=== PATIENT | female | born 1985 | race Caucasian/White ===

== ENCOUNTER 2024-06-11 11:50 | Outpatient (CLI) | payer MEDICAID, SELFPAY ==
--- NOTE | 2024-06-11 12:15 | CRLHL7_ITS ---
For Patients: As a result of the Century Cures Act, medical imaging exams and procedure reports are released immediately into your electronic medical record. You may view this report before your referring provider. If you have questions, please contact your health care provider. HISTORY: Dating and viability COMPARISON: None available of this gestation. TECHNIQUE: Transvaginal ultrasound examination of the early was performed. FINDINGS: A single intrauterine gestational sac is seen with a pole. The crown-rump length measurement of 2.2 cm gives an estimated gestational age of 8 weeks 6 days with an estimated date of delivery of 01/15/2025. This correlates well with the LMP of 04/11/2024 which gives a clinical age of 8 weeks 5 days. Regular cardiac activity is seen at 176 BPM. There is a small hypoechoic fluid collection located along the inferior left side of the gestational sac measuring 1.8 x 0.9 x 0.9 centimeters consistent with a small subchorionic hemorrhage. There is no sign of free fluid in the pelvis. The ovaries are normal in appearance. IMPRESSION: 1. Single intrauterine gestation with estimated age of 8 weeks 6 days. 2. Regular cardiac activity is seen. 3. Small subchorionic hemorrhage inferior to the left of the gestational sac. Dictated by Dhruv Arvizu MD @ 06/11/2024 10:47:17 PM (Electronically Signed)
== END 2024-06-11 11:51 | disposition home or self-care (01) ==
PROVIDERS: Visit Provider Physician Assistant
DX: Z34.91 Encounter for supervision of normal pregnancy, unspecified, first trimester (principal); O20.9 Hemorrhage in early pregnancy, unspecified; Z3A.08 8 weeks gestation of pregnancy
CPT/HCPCS: 76817; 86703; 86706; 86803; 86850; 86900; 86901; 87086; 87340; 87491; 87591

== ENCOUNTER 2024-06-11 13:20 | Outpatient (CLI) | payer MEDICAID, SELFPAY ==
[2024-06-11 18:49] LABS: Chlamydia DNA Amplified* NOT DETECTED (No Detected); GC DNA Amplified* NOT DETECTED (No Detected)
== END 2024-06-11 13:21 | disposition home or self-care (01) ==
PROVIDERS: Visit Provider Physician Assistant
DX: Z34.81 Encounter for supervision of other normal pregnancy, first trimester (principal)
CPT/HCPCS: 86592; 86703; 86704; 86706; 86762; 86787; 86803; 86850; 86900; 86901; 87086; 87340; 87491; 87591

== ENCOUNTER 2024-10-24 14:05 | Outpatient (CLI) | payer OTHER, SELFPAY | END 2024-10-24 14:06 | disposition home or self-care (01) | LOC: NFLDREF 10-26 22:27 | PROVIDERS: Visit Provider Advanced Practice Midwife | DX: Z34.93 Encounter for supervision of normal pregnancy, unspecified, third trimester (principal); Z3A.28 28 weeks gestation of pregnancy | CPT/HCPCS: 86592 ==

== ENCOUNTER 2024-11-21 13:57 | Outpatient (CLI) | payer OTHER, SELFPAY ==
--- NOTE | 2024-11-21 14:00 | CRLHL7_ITS ---
For Patients: As a result of the Century Cures Act, medical imaging exams and procedure reports are released immediately into your electronic medical record. You may view this report before your referring provider. If you have questions, please contact your health care provider. OB ULTRASOUND LMP: 04/11/2024. RICKY by LMP: 01/16/2025. GA: 32 w, 0 d. Single. INDICATION: Supervision of elderly multigravida. TECHNIQUE: Real time grayscale imaging of the fetus was performed. Transabdominal. CERVIX: Not visualized. POSITIONING: Vertex. AMNIOTIC FLUID: 2.6 cm. SDP (N: greater than 2 x 1 cm) PLACENTA: Technique: Transabdominal. PLACENTA POSITION: Anterior, left wall. DOPPLER: heart rate: 135 bpm. BIOMETRY: BPD: 8.0 cm. 32 w, 2 d, 49 percent. HC: 29.7 cm. 32 w, 6 d, 34 percent. AC: 27.8 cm. 31 w, 6 d, 44 percent. FL: 5.9 cm. 30 w, 6 d, 11 percent. FL/AC ratio: 21.25 percent. HC/AC ratio: 1.07. EFW: 1815 g. Weight: 4 lbs, 0 oz. age by this US: 32 w, 0 d. RICKY by this US: 01/16/2025. Percentile by RICKY: 29 percent. IMPRESSION: 1. Sonographic gestational age 32 weeks 0 days and sonographic due date 01/16/2025. Good correlation with dates. Normal interval growth. 2. Estimated weight 29th percentile. Abdominal circumference 44th percentile. 3. Amniotic fluid single deepest pocket 2.6 cm. Mathieu Armendariz M.D. Diagnostic Radiologist [email or web address] JULIANA/lashay metz/Dictated by: Mathieu Armendariz MD @ 11/22/2024 8:13:00 AM (Electronically Signed)
== END 2024-11-21 13:58 | disposition home or self-care (01) ==
LOC: US 13:58
PROVIDERS: Visit Provider Advanced Practice Midwife
DX: O09.523 Supervision of elderly multigravida, third trimester (principal); Z3A.32 32 weeks gestation of pregnancy
CPT/HCPCS: 76816

== ENCOUNTER 2024-12-19 12:47 | Outpatient (CLI) | payer OTHER, SELFPAY ==
--- NOTE | 2024-12-19 13:00 | CRLHL7_ITS ---
For Patients: As a result of the Century Cures Act, medical imaging exams and procedure reports are released immediately into your electronic medical record. You may view this report before your referring provider. If you have questions, please contact your health care provider. INDICATION: Advanced maternal age. FINDINGS: Cervix: Not visualized. positioning: Vertex. Amniotic fluid: 11.9 cm MONSTER. 3.9 cm SDP. Placenta: Technique TA. Position anterior. heart rate: 127 bpm. Biophysical Profile: Gross body movements: 2 tone: 2 Respiratory activity: 2 Amniotic fluid SDP: 2 Total score: 8 IMPRESSION: 1. Normal biophysical profile 8/8. 2. MONSTER 11.9 cm. Mathieu Armendariz M.D. Diagnostic Radiologist [email or web address] bM/Dictated by: Mathieu Armendariz MD @ 12/19/2024 3:26:00 PM (Electronically Signed)
== END 2024-12-19 12:48 | disposition home or self-care (01) ==
LOC: US 12:48
PROVIDERS: Visit Provider Midwife
DX: O09.523 Supervision of elderly multigravida, third trimester (principal); Z3A.36 36 weeks gestation of pregnancy
CPT/HCPCS: 76819

== ENCOUNTER 2024-12-19 16:20 | Outpatient (CLI) | payer OTHER, SELFPAY ==
[2024-12-20 10:29] LABS: Strep B DNA Probe Negative (Negative)
[2024-12-20 10:38] LABS: Strep B Susceptibility Needed? No
== END 2024-12-19 16:21 | disposition home or self-care (01) ==
LOC: NFLDREF 16:20
PROVIDERS: Visit Provider Midwife
DX: O09.523 Supervision of elderly multigravida, third trimester (principal); Z3A.36 36 weeks gestation of pregnancy
CPT/HCPCS: 87081; 87653

== ENCOUNTER 2025-01-09 16:52 | Outpatient (CLI) | payer OTHER, SELFPAY ==
[2025-01-09] VITALS (7 sets, daily range): BP systolic 104–110; BP diastolic 56–70; PULSE 85–146; RESP 16; TEMP 37–37.1; O2SAT 96–98; BMI 28.8
[2025-01-09] MEDS: hydrOXYzine pamoate 25 MG CAPSULE 100 MG PO (20:10)
[2025-01-09] MEDS: MORPHINE 10 MG/ML inj IM (20:11)
--- NOTE | 2025-01-09 22:40 | PC.OBNST ---
NST Note NST Note Start: 01/09/25 17:06 Freq: ONCE Status: Active Protocol: Document 01/09/25 22:39 IGOR (Rec: 01/09/25 22:40 IGOR [id number]) NST Note 4 Para (# of births) 2 EDC 01/16/25 Gestational Age In 39 Weeks & 0 Days Weeks & Days Patient Presented Contractions/cramping with Complaint(s) of Reactive Yes Appropriate for Yes Gestational Age MARCELLE Rey RN Date 01/09/25 Reactive Yes Appropriate for Yes Gestational Age MARCELLE Mohamud RN Date 01/09/25 OB NST charge Yes Complete NST Note Yes via Write Note The provider's electronic signature indicates the NST is reactive/appropriate for gestational age. *Note to provider: If an addendum is required, open the patient's chart and click on the note under the Nurse/Allied Health tab.
--- NOTE | 2025-01-11 17:22 | PC.OBNST ---
NST Note NST Note Start: 01/09/25 17:06 Freq: ONCE Status: Discharge Protocol: Document 01/09/25 22:39 IGOR (Rec: 01/09/25 22:40 IGOR [id number]) NST Note 4 Para (# of births) 2 EDC 01/16/25 Gestational Age In 39 Weeks & 0 Days Weeks & Days Patient Presented Contractions/cramping with Complaint(s) of Reactive Yes Appropriate for Yes Gestational Age RN Candido RN Date 01/09/25 Reactive Yes Appropriate for Yes Gestational Age MARCELLE Mohamud RN Date 01/09/25 OB NST charge Yes Complete NST Note Yes via Write Note The provider's electronic signature indicates the NST is reactive/appropriate for gestational age. *Note to provider: If an addendum is required, open the patient's chart and click on the note under the Nurse/Allied Health tab.
== END 2025-01-09 22:50 | disposition home or self-care (01) ==
LOC: OB OUT 16:53 → OB 16:56
PROVIDERS: Visit Provider Advanced Practice Midwife
DX: O47.1 False labor at or after 37 completed weeks of gestation (principal); Z3A.39 39 weeks gestation of pregnancy
CPT/HCPCS: 59025; G0463; A9270; J2270

== ENCOUNTER 2025-01-13 08:40 | Inpatient (IN) | payer OTHER, SELFPAY ==
[2025-01-13] VITALS (64 sets, daily range): BP systolic 79–152; BP diastolic 44–81; PULSE 84–141; RESP 16–18; TEMP 36.6–37.1; O2SAT 97–100; BMI 28.3
--- NOTE | 2025-01-13 08:47 | P.LDBA_ITS ---
Subjective History of Present Illness Narrative: Christiane is a 39 yo at 39.4 weeks gestation being admitted to Labor and Delivery for spontaneous onset of labor. She reports contractions started around 530 this morning. They became more regular and intense on her ride in. She is breathing through them and desires an epidural for pain management. She is coping well and supported by her , Giovani. She denies any leaking of fluid or bleeding and endorses movement. Her full history and physical was dictated by YUE Dangelo on 12/25/2024. Please see this for details. Specific Issues/Plans PARTNER: Giovani Daughter: Mila Son: TAMY. It is another boy! Ivan Giovani H&P: by Patrica Gentile CNM 12/25/24 # AMA, 40 at time of delivery Genetic screening: NIPT normal Level 2 ultrasound: normal--pt not returning calls for ECHO scheduling, place another order if she plans to have it; declines Growth ultrasound at 32 weeks: ordered 10/24 Weekly surveillance 36 weeks: ok with weekly NST Delivery recommended between 39 and 40 weeks: declines # FOB- hypertrophic cardiomyopathy. He had open heart surgery on July 17 Declined echo, did not do with previous children; reports his cardiomyopathy presented in adulthood # Anemia, 10.5 at 28 weeks Recommended iron supplement [facility] IM[facility]06/11/2024-1. Single intrauterine gestation with estimated age of 8 weeks 6 days. 2. Regular cardiac activity is seen. 3. Small subchorionic hemorrhage inferior to the left of the gestational sac. Lev 2 US-09/04/2024- Normal findings. Echo recommended due to paternal hx of cardiomyopathy. Declined as they did not with previous. 11/21/24: Growth 29%, Fluid SDP 2.6. -agrees to BPP with MONSTER at 36w for surveillance. VACCINATIONS: COVID: Declined FLU: Declined TDAP: Declines 32 WEEK MENTAL HEALTH: [] LAST PAP: Approximately 5 years ago, declined at 1st OB. Pap OB - Problem Based A/P Additional Plan (1) Pain during labor: Status: Acute (2) 39 weeks gestation of : Status: Acute (3) AMA (advanced maternal age) multigravida 35+: Status: Acute (4) Anemia during : Status: Acute Plan ASSESSMENT:? 39 yo at 39.4 weeks gestation? complicated by:?AMA, FOB has hypertrophic cardiomyopathy, Anemia Labor type: Spontaneous, Early labor? Category 1 FHR pattern.?? Labor complicated by: none? GBS negative? ? PLAN:? 1. Routine intrapartum cares as ordered. Continue with expectant management. Discussed AROM after epidural if desired. 2. Monitoring per policy, continuous with epidural placement.? 3. Desires epidural for pain management, requested. Anesthesia notified. Candidate for analgesia of choice.?? 4. Patient encouraged to reposition and ambulate to promote physiologic labor and .? 5. Anticipate ? Delivery/Labor/Induction Plan Plan: expectant management OB Result Labs Blood Type: B (+) positive GBS Status: negative OB Exam Physical Exam Vital signs: Temperature 98.4 F 01/13/25 10:30 Pulse Rate 90 01/13/25 11:30 Respiratory Rate 18 01/13/25 10:30 Blood Pressure 100/57 L 01/13/25 11:30 Blood Pressure Mean 75 01/13/25 11:30 Pulse Oximetry 99 01/13/25 09:32 Narrative: Vitals Reviewed Constitutional:? Alert and oriented x3 HEENT:? Normocephalic, atraumatic Neck:? Supple Lungs:? Clear to auscultation bilaterally Heart:? Regular rate and rhythm, no murmur, rub or gallop Abdomen:? Soft, nontender, and gravid. Vertex by Robert's, confirmed with cervical exam. Extremities:? No edema or erythema Cervix: 4 cm/70%/-2 station/vertex NST: 130 bpm/moderate variability/15x15 accelerations/no decelerations/contractions every 1-3 minutes lasting 60-100 seconds Detailed Labor and Delivery Exam Patient Gravid: yes
[2025-01-13] MEDS: LACTATED RINGERS 1000 ML 1,000 ML IV ×2 (08:48→09:47)
[2025-01-13 08:49] LABS: Basophils Percent Auto 0.5 % (0.0-3.0); Eosinophils Percent Auto 0.3 % (0.0-7.0); Hemoglobin* 12.3 gm/dL (12.0-16.0); Immature Granulocytes Pct Auto 0.6 %; Lymphocytes Percent Auto 20.2 % (20-44); Mean Corpuscular HGB Conc 33 gm/dL (32-36); Mean Corpuscular Hemoglobin 30 pg (26-34); Mean Corpuscular Volume 91 fL (80-100); Monocytes Percent Auto 5.7 % (0.0-11.0); Neutrophils Percent Auto 72.7 % (42.0-72.0); Platelet Count* 173 K/uL (140-440); RDW Coefficient of Variation % 12.6 % (11.5-15.5); Red Blood Count 4.05 m/uL (4.00-5.20); White Blood Count* 12.53 K/uL (4.50-11.00)
[2025-01-13 08:52] LABS: Slide Review Reflex No
[2025-01-13] MEDS: LIDOCAINE 2% (PF) 5 ML VIAL EPIDURAL (09:37)
--- NOTE | 2025-01-13 09:37 | P.ANBPRC_ITS ---
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 Marital status: . Religio us/cultural needs: no. Chemical or radiation exposure: no. Pre- tobacco use: no. Pre- alcohol use: no. Current tobacco use: no. Current alcohol use: no. Recreational drug use: no. Dietary restrictions: no. Blood transfusion acceptable in an emergency: yes. PSYCHOSOCIAL HISTORY: History of depression or currently depressed: no. Current or past physical, emotional, or sexual mistreatment: no. Problems that will make it hard to make it to appointments: no. What is your current living situation?: I presently have a place to live Problems where you live: no known problems In the past 12 months, utilities in danger of being shut off: no In past 12 months, lack of transportation kept you from medical appts, meetings, work, or getting things needed for daily living: no In the past 12 mos, have been you worried that your food would run out before you had money to buy more?: never true In the past 12 mos, the food you bought just didn't last and you didn't have money to buy more?: never true Smoking Status: Former smoker How often does anyone, including family, friends and others, physically hurt you : never How often does anyone, including family, friends and others, insult or talk down to you: never How often does anyone, including family, friends and others, threaten you with harm: never How often does anyone, including family, friends and others, scream or curse at you: never Meds Home Medications and Allergies Home Medications ?Medication ?Instructions ?Recorded ?Confirmed ?Type MNF-nrxo-SL-omega 3 fatty no.1 27 1 cap PO DAILY 06/1101/09/25 History mg-1 mg-300 mg capsule famotidine 10 mg tablet (Pepcid AC) 10 mg PO QDAY 09/0701/09/25 History iron,carbonyl 65 mg-vitamin C 125 1 tab PO QDAY 01/09/25 History mg tablet,delayed release (Vitron-C) omeprazole 40 mg capsule,delayed 40 mg PO QDAY 01/09/25 History release metoclopramide HCl 10 mg tablet 10 mg PO Q6H PRN heada efrain #20 tabs 01/03/25 01/09/25 Rx (Reglan) Allergies Allergy/AdvReac Type Severity Reaction Status Date / Time latex Allergy Intermediate Rash Verified 01/09/25 17:54 Results Labs Labs: Laboratory Results - last 24 hr 01/13/25 08:39 WBC 12.53 H RBC 4.05 Hgb 12.3 Hct 37.0 MCV 91 MCH 30 MCHC 33 RDW Coeff of Thony 12.6 Plt Count 173 Neut % (Auto) 72.7 H Lymph % (Auto) 20.2 [place] % (Auto) 5.7 Eos % (Auto) 0.3 Baso % (Auto) 0.5 Neut # (Auto) 9.10 H Lymph # (Auto) 2.50 [place] # (Auto) 0.70 Eos # (Auto) 0.00 Baso # (Auto) 0.10 Abs Immat Gran (auto) 0.10 Imm/Tot Granulo (auto) 0.6 Vital Signs Vital Signs: Last Vital Signs Temp 98.1 F 01/13/25 08:54 Pulse 122 H 01/13/25 09:36 Resp 18 01/13/25 08:54 BP 123/81 01/13/25 09:36 Pulse Ox 99 01/13/25 09:32 Weight: 68.039 kg Height: 162.56 cm Anesthesia Procedures Epidural Insertion Patient Location: OB Start Time: 09:00 Stop Time: 09:37 Start Date: 01/13/25 Stop Date: 01/13/25 Reason for Block: procedure for pain Patient Position: sitting Performed By: Ray Lao Preanesthetic Checklist: IV checked, risks and benefits discussed, surgical consent, monitors and equipment checked, pre-op evaluation, timeout performed and anesthesia consent Prep: chlorhexidine gluconate Monitoring: blood pressure monitoring, continuous pulse oximetry and heart rate Approach: midline Vertebral Space: lumbar (1-5) Epidural Technique: HOLLY air Needle Type: Tuohy needle Injection Technique: continuous catheter Needle gauge: 17 Needle Length (cm): 10 cm Needle Insertion Depth (cm): 7 Catheter Gauge: 19 Catheter Type: multi-orifice Catheter at skin depth (cm): 13 Test Dose Result: negative and lidocaine 1.5% with epinephrine 1 to 200,000
[2025-01-13] MEDS: ROPIVACAINE 0.2% 100 ml 100 ML 12 MG EPIDURAL ×2 (09:38→16:39)
[2025-01-13] MEDS: ROPIVACAINE 0.2 % PF 10 ML INJ 20 MG EPIDURAL (09:38)
[2025-01-13] MEDS: PHENYLEPHRINE 100 MCG/ML SYRINGE IVP ×3 (09:43→10:38)
[2025-01-13] MEDS: ePHEDrine sulfate 5 MG/ML inj 10 MG IVP (10:46)
[2025-01-13] MEDS: LACTATED RINGERS 1000 ML 1,000 ML 125 ML IV (15:37)
--- NOTE | 2025-01-13 16:15 | PM.OBPNL ---
Subjective Date Seen: 01/13/25 Narrative: Christiane is a 39 yo at 39.4 weeks gestation that presented in spontaneous labor this morning. She requested an epidural on arrival and then once she was comfortable, AROM was performed for thin meconium stained fluid. She has made slow progress since AROM but is appropriate. She is comfortable with an epidural. She is trying to rest. Objective Exam: Objective: Constitutional: Alert and oriented x3, mild distress, coping well Vital signs stable, see nurse documentation Abdomen: gravid, contractions palpate moderate with contractions and soft between Cervix: 8 cm/90%/0 station/vertex; light meconium stained fluid with exam NST: 145 bpm/moderate variability/15x15 accelerations/no decelerations/contractions every 2-5 minutes Vital Signs: Last Vital Signs Temp 98.2 F 01/13/25 15:32 Pulse 88 01/13/25 16:03 Resp 18 01/13/25 15:32 BP 107/56 L 01/13/25 16:03 Pulse Ox 99 01/13/25 09:32 Plan Plan: 39 yo at 39.4 weeks gestation? complicated by:?AMA, FOB has hypertrophic cardiomyopathy, Anemia Labor type: Spontaneous, Active labor? Category 1 FHR pattern.?? Labor complicated by: none? GBS negative? ? PLAN:? 1. Routine intrapartum cares as ordered. Continue with expectant management. Discuss pitocin for augmentation if labor progression slows or if patient has minimal change with next exam. She declines at this time but is open to it with next exam if needed. 2. Monitoring per policy, continuous with epidural placement.? 3. Desires epidural for pain management, requested. Anesthesia notified. Candidate for analgesia of choice.?? 4. Patient encouraged to reposition to promote physiologic labor and .? 5. Anticipate ?
[2025-01-13] MEDS: OXYTOCIN 30 unit/500 ML in NS 30 UNIT/500 ML BAG IVPB (17:29)
--- NOTE | 2025-01-13 20:52 | W.PM.OBVAGDE ---
OB Procedure Vag Delivery Mother Details Mother Details: The patient is a 39 year-old, 4, now Para 3, admitted on 01/13/25 at 39.4 weeks gestation. : 4 Para: 3 Weeks Gestation: 39.4 Admission Date: 01/13/25 Additional Details Amniotic Membrane Status: AROM Amniotic Membrane Rupture Date: 01/13/25 Amniotic Membrane Rupture Time: 10:29 Amniotic Membrane Fluid Description: Meconium Stained and Yellow Analgesia/Anesthesia Type: Epidural Waterbirth: No Pitcoin: Yes (Declined AMTSL) Intrapartal Events: Labor Augmentation Delivery augmentation: pitocin Labor Onset: 05:30 Complete: 20:08 Pushin:40 Heart: heart tones during second stage were reassuring with difficult to continuous monitor during contractions. heart rate accelerations present until delivery. Delivery Details Delivery Date: 01/13/25 Delivery Time: 20:17 Route of delivery: Infant Gender: Male Viability: Alive; Heart Rate Present Position at Delivery: OA Delivery Details: Patient was admitted for spontaneous onset of labor and progressed with augmentation. AROM at 1029 with clear fluid with additional forebag ruptured at 1259 for light meconium stained fluid. Patient utilized an epidural for pain management. She began to have intense pressure with contractions at 1851 but a small rim of cervix was palpated all the way around baby's head. She began to have a strong urge to push but anterior lip was palpated. Discussed anterior lip reduction and pushing was initiated at 1940 with her consent. It was easily reduced but would returned between each pushing attempt. Continued to reduce anterior lip with each push until she was complete at 2007. Fetus was OP on exam at onset of pushing but rotated with pushing efforts. of a viable male at 2017 in semi-reclined position on the bed. Vertex delivered OA. No nuchal cord or shoulder but body was slow to deliver. Anterior shoulder was palpated and pointer fingers were placed under both axillary of to assist in delivery of body with gentle traction. passed to mothers abdomen without a cry but stimulated and became vigorous. Peds was called to attend delivery and at bedside at time. Peds provider was okay with patient request for delayed cord clamping. Cord was clamped and cut at > 5 minutes. APGARS were 8 at one minute and 9 at five minutes respectively. Mouth was bulb suctioned. Intact placenta with a 3 vessel cord delivered spontaneously at 2032. Fundus firm. Intact perineum identified no repair. QBL 400 cc. Mother and baby stable; mother plans to breastfeed. weight pending. 1 Minute Interval Total Score: 8 5 Minute Interval Total Score: 9 Additional Details Shoulder Dystocia: No Placenta Delivery Time: 20:33 Placental Delivery Description: Spontaneous Delivery repair: Vicryl Procedure Done: Global Blood Loss: 400 Laceration: None Blood Loss Measurement Type: QBL Bakri Used: No Cord Vessel Description: 3 Vessels Event Summary Status: Mother and were stable after delivery. Disposition: floor
[2025-01-13] MEDS: IBUPROFEN 600 MG TABLET PO (21:00)
[2025-01-13] MEDS: ONDANSETRON 2 MG/ML inj 4 MG IV (21:00)
[2025-01-13] MEDS: OXYCODONE 5 MG TABLET PO (22:09)
[2025-01-14] VITALS (7 sets, daily range): BP systolic 107–129; BP diastolic 70–80; PULSE 71–101; RESP 16–17; TEMP 36.6–37.2; O2SAT 97–98
[2025-01-14] MEDS: IBUPROFEN 600 MG TABLET PO ×4 (02:58→20:44)
[2025-01-14] MEDS: DOCUSATE SODIUM 100 MG CAPSULE PO (07:49)
[2025-01-14] MEDS: ACETAMINOPHEN 500 MG TABLET 1000 MG PO ×3 (07:49→20:45)
--- NOTE | 2025-01-14 12:18 | PM.OBPNVD1 ---
OB - PN:Subj Subjective Date Seen: 01/14/25 Patient comments OB post-: no complaints, pain well controlled, tolerating diet and flatus present Compton status: and doing well Compton feeding status: exclusively Narrative: Christiane feels well.? Her pain is well controlled with current medications.?Tailbone pain she had been experiencing has decreased significantly and is at a very manageable level. She has no new complaints.? Urinary output is adequate and she is voiding without difficulty.? Has a good appetite, is tolerating a general diet, is passing flatus, and has not had a bowel movement.? Now has a small amount of rubra lochia decreasseing stedily since after delivery.? She is ambulating well.?She is planning to discharge home tomorrow. OB - PN: Obj Exam Physical Exam: Vital signs: Temp Pulse Resp BP Pulse Ox O2 Del Method 98.4 F 71 17 117/74 97 Room Air 01/14/25 08:56 01/14/25 08:56 01/14/25 08:56 01/14/25 08:56 01/14/25 08:56 01/14/25 08:56 Narrative: GENERAL APPEARANCE:? normal affect, alert, no distress? MOOD:? appropriate? CHEST:? clear to auscultation and percussion? HEART:? regular rate and rhythm? ABDOMEN:? soft, non-tender the uterine fundus is U/2 and is appropriate for the stage of recovery.? PERINEUM:? mild edema of the perineum, there is a intact perineum that is healing well.? EXTREMITIES:? normal and no edema? OB - PN: A/P Delivery Assessment and Plan (1) 39 weeks gestation of : Status: Inactive (2) AMA (advanced maternal age) multigravida 35+: Status: Acute (3) Anemia during : Status: Acute (4) care following vaginal delivery: Status: Acute (5) Lactating mother: Status: Acute Plan day: 1 Plan: routine care Comments: Anticipate discharge home tomorrow.
[2025-01-14 12:42] LABS: Rapid Plasma Reagin (RPR) Non Reactive (Non Reactive)
[2025-01-15] MEDS: ACETAMINOPHEN 500 MG TABLET 1000 MG PO ×2 (03:40→11:02)
[2025-01-15] MEDS: IBUPROFEN 600 MG TABLET PO (03:40)
[2025-01-15 03:41] VITALS: BP 117/71; PULSE 88; RESP 16; TEMP 36.7
--- NOTE | 2025-01-15 08:30 | P.DS_ITS ---
DS: Providers Provider Date Seen: 01/15/25 Date of admission: 01/13/25 08:40 Primary care physician: Not a Local Provider Admitting Clinician: Jo Haider CNM Attending Physician on discharge: Misty Zacarias CNM Date of Discharge: 01/15/25 DS: Diagnosis Discharge Diagnosis (1) care following vaginal delivery: Status: Acute (2) Lactating mother: Status: Acute Exam Narrative: Exam Narrative: VSS, afebrile GENERAL APPEARANCE: ?normal affect, alert, no distress MOOD: ?appropriate HEENT: normocephalic, neck supple, full ROM CHEST: ?Symmetrical chest wall movement. ?Normal respiratory effort. ?Clear to auscultation HEART: ?regular rate and rhythm ABDOMEN: ?soft, non-tender. Uterine fundus is firm, at Umbilicus, Midline and is appropriate for the stage of recovery. ?Bowel sounds present. PERINEUM: ?mild edema of the perineum, intact EXTREMITIES: ?normal and no edema Const: Vital Signs, click to edit/add: Vital Signs - 24 hr 01/14/25 08:56 01/14/25 12:55 01/14/25 16:55 Temperature 98.4 F 97.9 F 98.4 F Pulse Rate [Pulse Oximeter] 71 85 101 H Respiratory Rate 17 17 17 Blood Pressure [Ri ght Arm] 117/74 112/72 115/76 Pulse Oximetry 97 98 Oxygen Delivery Me thod Room Air Room Air Room Air 01/14/25 20:52 01/15/25 03:41 Temperature 98.9 F 98.0 F Pulse Rate [Pulse Oximeter] 78 88 Respiratory Rate 16 16 Blood Pressure [Ri ght Arm] 129/80 117/71 Pulse Oximetry 98 Oxygen Delivery Me thod Room Air Documenting provider has reviewed patient's vital signs: yes OB - DS: Summary Hospital Course Hospital Course: Christiane is a 39 y.o. who was admitted to [facility] for labor. ?She had an uncomplicated NVD.?The patient feels well. ?The pain is well controlled with current medications. ?She has no new complaints. ?She is breast feeding and reports things are going well.? the patient has done well.? Vitals have been stable.? She has remained afebrile.? Has a good appetite, is tolerating a general diet. ?She is voiding without difficulty.? She is passing gas and has not had a bowel movement.? She is ambulating and denies any dizziness.? Has Small amount of rubra lochia. ?She is undecided on her plan for prevention. Peripartum Data delivery method: Vaginal Gender: Male Infant Discharge Plan: Home Status at Discharge Functional status at discharge: independent ambulation Overall status at discharge: patient is progressing back to baseline Time Spent with Patient Time attestation: Total time spent providing and/or coordinating discharge services: Time spent: Less than 30 minutes Discharge Plan Discharge Disposition: Home, Self-Care Date of Admission: 01/13/25 08:40 Attending Provider on Discharge: Misty Zacarias Primary Care Provider: Provider,Not a Local Condition: Stable Anticipated Discharge Date/Time: 01/15/25 12:00 Discharge Medications: New acetaminophen 500 mg Tablet 1,000 mg PO Q6H PRNQty: 0 0RF docusate sodium 100 mg Capsule 100 mg PO DAILY Qty: 90 1RF ibuprofen 600 mg Tablet 600 mg PO Q6H PRNQty: 60 0RF Continued FAC-mllm-SY-omega 3 fatty no.1 27-1-300 mg capsule 1 cap PO DAILY famotidine [Pepcid AC] 10 mg tablet 10 mg PO QDAY Vitron-C 65 mg iron- 125 mg tablet,delayed release (DR/EC) 1 tab PO QDAY omeprazole 40 mg capsule,delayed release(DR/EC) 40 mg PO QDAY metoclopramide HCl [Reglan] 10 mg tablet 10 mg PO Q6H PRN (Reason: headache) Qty: 20 0RF Rx Instructions: Take with Tylenol. If not resolved in 6 hours, take 2nd dose. Discharge Orders: Discharge Order (Routine); Ordered 01/15/25 Ordered By: Misty Zacarias Patient Education: OB Over the Counter Medication Information, OB Vaginal/Breast Feeding Additional Instructions: Discharge instructions were reviewed with the patient including signs and symptoms of infection and home going medications Nothing vaginally for 6 weeks: no tampons or intercourse Off Work or School for 6 weeks 2-week visit: discuss infant feeding concerns, review control options and screen for anxiety/depression. 6-week visit for an annual exam. consultation services are available to all mothers and babies for the first year after delivery.? To make an appointment, please call [phone]. Activity Level: Activity as Tolerated Discharge Diet: Regular Follow Up Appointments: [facility] [Provider Group] Forms: [employer] Info Instructions
[2025-01-15 08:36] VITALS: BP 127/80; PULSE 91; RESP 20; TEMP 36.6; O2SAT 98
[2025-01-15] MEDS: DOCUSATE SODIUM 100 MG CAPSULE PO (11:03)
== END 2025-01-15 11:27 | disposition home or self-care (01) | DRG 807 ==
LOC: OB OUT 09:02 → OB 01-14 07:38
PROVIDERS: Admitting Provider Advanced Practice Midwife; PCP Advanced Practice Midwife; Visit Provider Advanced Practice Midwife
DX: O99.02 Anemia complicating childbirth (principal); Z37.0 Single live birth; D64.9 Anemia, unspecified; O77.0 Labor and delivery complicated by meconium in amniotic fluid; Z3A.39 39 weeks gestation of pregnancy; Z82.49 Family history of ischemic heart disease and other diseases of the circulatory system
CPT/HCPCS: 01967; 36415; 85025; 86592; G0463; A9270; J2405; J2795; J7120

== ENCOUNTER 2025-02-26 14:00 | Outpatient (CLI) | payer OTHER, SELFPAY ==
[2025-02-28 19:59] LABS: HPV Source Cervical
[2025-03-05 08:39] LABS: Pap Test Digital Imaging Done
== END 2025-02-26 14:01 | disposition home or self-care (01) ==
PROVIDERS: Visit Provider Advanced Practice Midwife
DX: Z39.2 Encounter for routine postpartum follow-up (principal)
CPT/HCPCS: 87624; 87625; 88141; 88142; 88175